=== PATIENT | male | born 1985 | race African-American/Black ===

== ENCOUNTER 2017-02-06 21:36 | Emergency (ER) | payer MEDICARE, OTHER ==
[2017-02-06 21:47] VITALS: BP 130/93; PULSE 83; RESP 18; TEMP 97.9
--- NOTE | 2017-02-06 21:58 | ED ---
General Adult HPI - General Chief complaint: Recheck/Abnormal Lab/Rx Stated complaint: insommnia Time Seen by Provider: 02/06/17 21:50 Source: patient Mode of arrival: ambulatory Limitations: no limitations - History of Present Illness Initial comments: 31-year-old male patient presents to emergency department today with complaints of insomnia and requesting a prescription. Patient states that he has had issues sleeping for years. States that he recently moved to the area and does have an appointment to establish with a primary care physician. Patient states that he has taken melatonin, Benadryl, and use marijuana to help him sleep however none of these really help him. Patient states that he was previously prescribed Ambien by his primary doctor in [place], [place] however he hasn't had this for about a year. Patient states that this did help him in the past. Patient denies any history of anxiety, depression, suicidal thoughts, or suicidal ideation. He denies any physical symptoms or concerns. Denies any headaches, dizziness, weakness, pain, difficulty with urination or bowel movements. - Related Data Previous Rx's Medication Instructions Recorded Zolpidem [Ambien] 10 mg PO HS PRN #10 tab 02/06/17 Allergies Allergy/AdvReac Type Severity Reaction Status Date / Time No Known Allergies Allergy Verified 02/06/17 21:46 Review of Systems ROS Statement: Those systems with pertinent positive or pertinent negative responses have been documented in the HPI. ROS Other: All systems not noted in ROS Statement are negative. Past Medical History Past Medical History: No Reported History History of Any Multi-Drug Resistant Organisms: None Reported Past Surgical History: No Surgical Hx Reported Past Psychological History: Anxiety, Schizophrenia Smoking Status: Current every day smoker Past Alcohol Use History: None Reported Past Drug Use History: Marijuana General Exam Limitations: no limitations General appearance: alert, in no apparent distress Eye exam: Present: normal appearance, PERRL, EOMI. Absent: scleral icterus, conjunctival injection, periorbital swelling ENT exam: Present: normal exam, normal oropharynx, mucous membranes moist Neck exam: Present: normal inspection. Absent: tenderness, meningismus, lymphadenopathy Respiratory exam: Present: normal lung sounds bilaterally. Absent: respiratory distress, wheezes, rales, rhonchi, stridor Cardiovascular Exam: Present: regular rate, normal rhythm, normal heart sounds. Absent: systolic murmur, diastolic murmur, rubs, gallop, clicks Neurological exam: Present: alert, oriented X3, CN II-XII intact Psychiatric exam: Present: normal affect, normal mood Skin exam: Present: warm, dry, intact, normal color. Absent: rash Course Vital Signs 02/06/17 21:43 Temperature 97.9 F Pulse Rate 83 Respiratory 18 Rate Blood Pressure 130/93 O2 Sat by Pulse 97 Oximetry Medical Decision Making - Medical Decision Making 31-year-old male patient presented to emergency department today requesting prescription for medication to help him sleep. Physical exam is unremarkable. Patient denied any suicidal thoughts, anxiety, panic, or other concerns. Patient does have a plan to follow up with and establish with a primary care physician as he is new to the area. Patient will be given a 10 day supply of Ambien as he has taken this with good outcomes in the past. He'll be instructed to return immediately for any new, worsening, or concerning symptoms. Patient verbalizes understanding and agrees with this plan. Disposition Clinical Impression: Insomnia Disposition: HOME SELF-CARE Condition: Good Instructions: Insomnia (ED) Additional Instructions: Follow-up with primary care physician for any prescription refills. Return immediately for any new, worsening, or concerning symptoms. Prescriptions: Zolpidem [Ambien] 10 mg PO HS PRN #10 tab PRN Reason: Insomnia Referrals: None,Stated [Primary Care Provider] - 1-2 days Time of Disposition: 21:58
== END 2017-02-06 22:08 | disposition home or self-care (01) ==
LOC: EC 21:36
DX: G47.00 Insomnia, unspecified (principal); F12.10 Cannabis abuse, uncomplicated; F17.200 Nicotine dependence, unspecified, uncomplicated
CPT/HCPCS: 99283

== ENCOUNTER 2018-04-14 10:31 | Day surgery (SDC) | payer MEDICARE, OTHER ==
[2018-04-11 12:20] VITALS: BMI 30.7
[~2018-04-14 10:31] MED LIST: LACTATED RINGERS 1,000 ML IV SCH
[2018-04-14 10:59] VITALS: TEMP 99.2
[2018-04-14] MEDS ORDERED: LIDOCAINE 1% 20 ML VIAL (10MG/ML) FOR IV START INTRADERMA ONE (11:12)
[2018-04-14] MEDS ORDERED: MIDAZOLAM 2 MG/2 ML VIAL ONE (11:31)
[2018-04-14] MEDS ORDERED: LIDOCAINE 1% INJ 10MG/ML (20 ML MDV) ONE (11:31)
[2018-04-14] MEDS ORDERED: fentaNYL (PF) 50 MCG/ML 2 ML AMP ONE (11:31)
[2018-04-14] MEDS ORDERED: PROPOFOL 10 MG/ML 20 ML VIAL IV ONE (11:31)
[2018-04-14 11:50] VITALS: RESP 18
--- NOTE | 2018-04-14 11:54 | P.PCN ---
Date of Procedure: 04/14/18 Procedure(s) Performed: Procedure: Esophagogastroduodenoscopy and biopsy. Preoperative diagnosis: Chronic gastroesophageal reflux. Postoperative diagnosis: 1. Small sliding hiatal hernia with no definite esophagitis or complicated reflux disease. 2. Mild gastritis and duodenitis. 3. Multiple biopsies obtained from the duodenum, antrum and esophagus. Preparation and sedation: Was provided by anesthesia. Brief clinical history: The patient is a 32-year-old male who is scheduled for this evaluation because of chronic reflux symptoms requiring therapy. This evaluation is to assess for complicated reflux disease peptic ulcer disease or other pathology. Procedure: With the patient on his left lateral decubitus position and after informed consent and adequate sedation, the Olympus-GIF 160 video upper endoscope was used and was advanced under direct vision through the cricopharyngeus down the esophagus. GE junction was around 41 cm from the incisors and there was a small sliding hiatal hernia. There was no definite evidence of esophagitis or complicated reflux disease endoscopically. I then advanced the endoscope into the stomach which was insufflated with air and inspected in detail including the retroflex view in the cardia. There was mottling and erythema in various areas and submucosal hemorrhages in the antrum but no ulcers or erosions. Pyloric channel, duodenal bulb, post bulbar area and descending duodenum were examined and there was some erythema in the duodenal bulb but no ulcers, erosions or bleeding. I obtained biopsies from the duodenum, antrum and esophagus then the endoscope was withdrawn. The patient tolerated the procedure well. Plan: The patient was reassured. Will await biopsy results. He will follow up with you as planned and we would make further recommendations based on his course and biopsy results.
[2018-04-14 12:04] VITALS: BP 100/63; PULSE 76
== END 2018-04-14 12:45 | disposition home or self-care (01) ==
LOC: ORWHC2ENDO 10:31
DX: K29.80 Duodenitis without bleeding (principal); K29.50 Unspecified chronic gastritis without bleeding; K21.0 Gastro-esophageal reflux disease with esophagitis; K31.9 Disease of stomach and duodenum, unspecified; K44.9 Diaphragmatic hernia without obstruction or gangrene; I10 Essential (primary) hypertension; F17.210 Nicotine dependence, cigarettes, uncomplicated; F31.9 Bipolar disorder, unspecified; Z79.899 Other long term (current) drug therapy
CPT/HCPCS: 88305; 43239; J2250; J2001; J3010; J2704

== ENCOUNTER 2019-01-02 08:20 | Emergency (ER) | payer MEDICARE, OTHER ==
[2019-01-02 08:25] VITALS: TEMP 98.7
--- NOTE | 2019-01-02 08:40 | ED ---
General Adult HPI - General Chief complaint: Psychiatric Symptoms Stated complaint: Racing thoughts Time Seen by Provider: 01/02/19 08:26 Source: patient, RN notes reviewed Mode of arrival: ambulatory Limitations: no limitations - History of Present Illness Initial comments: Patient is a pleasant 33-year-old male presenting to the emergency department w ith concerns regarding racing thoughts. Patient is difficult to have a conversation with and does not answer questions unless the asked 2-3 times. Patient states he is sleeping okay. Patient states he is on his medication. Patient denies hallucinations. Patient denies suicidal or homicidal thoughts. Patient states he has had similar symptoms previously and was diagnosed with schizophrenia. - Related Data Home Medications Medication Instructions Recorded Confirmed Metoprolol Tartrate 25 mg PO BID 04/11/18 01/02/19 Albuterol Inhaler [Ventolin Hfa 2 puff INHALATION RT-Q6H PRN 01/02/19 01/02/19 Inhaler] Ergocalciferol [Vitamin D2] 50,000 unit PO Q7D 01/02/19 01/02/19 Fenofibrate 160 mg PO DAILY 01/02/19 01/02/19 Sucralfate [Carafate] 1 gm PO QID 01/02/19 01/02/19 Triamcinolone 0.5% Cream [Kenalog 1 applic TOPICAL BID 01/02/19 01/02/19 0.5% Cream] Zolpidem [Ambien] 10 mg PO HS PRN 01/02/19 01/02/19 amLODIPine [Norvasc] 10 mg PO DAILY 01/02/19 01/02/19 busPIRone HCl [Buspar] 5 mg PO BID 01/02/19 01/02/19 Previous Rx's Medication Instructions Recorded busPIRone HCl [Buspar] 5 mg PO BID #14 tab 01/02/19 Allergies Allergy/AdvReac Type Severity Reaction Status Date / Time No Known Allergies Allergy Verified 01/02/19 08:47 Review of Systems ROS Statement: Those systems with pertinent positive or pertinent negative responses have been documented in the HPI. ROS Other: All systems not noted in ROS Statement are negative. Constitutional: Denies: fever Eyes: Denies: eye pain ENT: Denies: ear pain Respiratory: Denies: cough Cardiovascular: Denies: chest pain Endocrine: Denies: fatigue Gastrointestinal: Denies: abdominal pain Genitourinary: Denies: dysuria Musculoskeletal: Denies: back pain Skin: Denies: rash Neurological: Denies: headache, weakness Past Medical History Past Medical History: Hypertension History of Any Multi-Drug Resistant Organisms: None Reported Past Surgical History: No Surgical Hx Reported Additional Past Anesthesia/Blood Transfusion Reaction / Comment(s): no anes thesia Past Psychological History: Anxiety, Schizophrenia Smoking Status: Current every day smoker Past Alcohol Use History: Occasional Past Drug Use History: Marijuana - Past Family History Mother Family Medical History: No Reported History General Exam Limitations: no limitations General appearance: alert, in no apparent distress Head exam: Present: atraumatic Eye exam: Present: normal appearance, PERRL Neck exam: Present: normal inspection Respiratory exam: Present: normal lung sounds bilaterally Cardiovascular Exam: Present: regular rate, normal rhythm GI/Abdominal exam: Present: soft. Absent: tenderness Extremities exam: Present: normal inspection Neurological exam: Present: alert Psychiatric exam: Present: normal affect, normal mood Skin exam: Present: normal color Course Vital Signs 01/02/19 01/02/19 08:21 09:53 Temperature 98.7 F Pulse Rate 108 H 104 H Respiratory 18 17 Rate Blood Pressure 155/107 114/76 O2 Sat by Pulse 97 100 Oximetry Medical Decision Making - Medical Decision Making Patient reportedly has been out of his BuSpar and mental health services does recommend prescribing prescription until they can see him on follow-up on Saturday. Patient still denies suicidal ideation. Mental health services does recommend discharge. - Lab Data Lab Results 01/02/19 Range/Units 08:33 Urine Opiates Screen Not Detected (NotDetected) Ur Oxycodone Screen Not Detected (NotDetected) Urine Methadone Screen Not Detected (NotDetected) Ur Propoxyphene Screen Not Detected (NotDetected) Ur Barbiturates Screen Not Detected (NotDetected) U Tricyclic Antidepress Not Detected (NotDetected) Ur Phencyclidine Scrn Not Detected (NotDetected) Ur Amphetamines Screen Not Detected (NotDetected) U Methamphetamines Scrn Not Detected (NotDetected) U Benzodiazepines Scrn Not Detected (NotDetected) Urine Cocaine Screen Not Detected (NotDetected) U Marijuana (THC) Screen Detected H (NotDetected) Disposition Clinical Impression: Acute psychosis Disposition: HOME SELF-CARE Condition: Stable Instructions (If sedation given, give patient instructions): Schizophrenia (ED) Additional Instructions: Please follow-up with mental health services Saturday as planned. Please also follow-up with primary care physician in the next day or 2 for recheck. Return for thoughts of self-harm, worsening symptoms or other concerns. Your prescription has been sent to your pharmacy. Prescriptions: busPIRone HCl [Buspar] 5 mg PO BID #14 tab Is patient prescribed a controlled substance at d/c from ED?: No Referrals: [facility] [Primary Care Provider] - 1-2 days Time of Disposition: 12:32
[2019-01-02 09:54] VITALS: BP 114/76; PULSE 104; RESP 17
[2019-01-02 09:57] LABS: Amphetamine Screen,Urine Not Detected (NotDetected); Barbiturate Screen,Urine Not Detected (NotDetected); Benzodiazepines Screen,Urine Not Detected (NotDetected); Cocaine Screen,Urine Not Detected (NotDetected); Methadone Screen, Urine Not Detected (NotDetected); Opiate Screen,Urine Not Detected (NotDetected); Oxycodone Screen, Urine Not Detected (NotDetected); Phencyclidine Screen,Urine Not Detected (NotDetected); Tricyclic Antidepressant,Urine Not Detected (NotDetected); Urn Cannabinoid Scrn Detected (NotDetected)
[2019-01-02] MEDS ORDERED: busPIRone HCl 5 MG TAB PO STA (12:30)
== END 2019-01-02 13:27 | disposition home or self-care (01) ==
LOC: EC 08:20
DX: F23 Brief psychotic disorder (principal); I10 Essential (primary) hypertension; F41.9 Anxiety disorder, unspecified; F17.200 Nicotine dependence, unspecified, uncomplicated; Z79.899 Other long term (current) drug therapy
CPT/HCPCS: 80306; 82075; 99284

== ENCOUNTER 2019-01-17 01:06 | Inpatient (IN) | payer MEDICARE, MEDICAID ==
--- NOTE | 2019-01-17 02:02 | ED ---
Psych HPI - General Source: patient, family, EMS Mode of arrival: EMS <Natividad Escalante - Last Filed: 01/17/19 01:59> <Flaco Cortez - Last Filed: 01/17/19 05:08> - General Chief Complaint: Psychiatric Symptoms Stated Complaint: EPS Eval Time Seen by Provider: 01/17/19 01:08 - History of Present Illness Initial Comments: 33-year-old male patient is brought in for psychiatric evaluation. Patient came home this evening and was acting his or early. Him and his mother got into an argument and she called the police. She did fill out a petition stating that his behavior has been very bizarre. He did threaten to harm her. Patient reports that he was walking home from a friend's house when he noticed there were multiple police officers parked at various intervals stating to his home. Patient states this made him very anxious and upset. Patient states that by the time he got home he was feeling "crazy". States that he wanted to relax however his mother started arguing with him which made him more upset. Police were called to the home, he was restrained. He was brought in by EMS. They did administer 10 mg of Versed. Patient does have history of schizophrenia. Has not been taking any psychiatric medications. Does take medication for blood pressure and sleeping. Does use marijuana. Denies any alcohol use today. Denies any current physical symptoms or concerns. (Natividad Escalante) - Related Data Home Medications Medication Instructions Recorded Confirmed Metoprolol Tartrate 25 mg PO BID 04/11/18 01/02/19 Albuterol Inhaler [Ventolin Hfa 2 puff INHALATION RT-Q6H PRN 01/02/19 01/02/19 Inhaler] Ergocalciferol [Vitamin D2] 50,000 unit PO Q7D 01/02/19 01/02/19 Fenofibrate 160 mg PO DAILY 01/02/19 01/02/19 Sucralfate [Carafate] 1 gm PO QID 01/02/19 01/02/19 Triamcinolone 0.5% Cream [Kenalog 1 applic TOPICAL BID 01/02/19 01/02/19 0.5% Cream] Zolpidem [Ambien] 10 mg PO HS PRN 01/02/19 01/02/19 amLODIPine [Norvasc] 10 mg PO DAILY 01/02/19 01/02/19 busPIRone HCl [Buspar] 5 mg PO BID 01/02/19 01/02/19 Previous Rx's Medication Instructions Recorded busPIRone HCl [Buspar] 5 mg PO BID #14 tab 01/02/19 Allergies Allergy/AdvReac Type Severity Reaction Status Date / Time No Known Allergies Allergy Verified 01/02/19 08:47 Review of Systems ROS Other: All systems not noted in ROS Statement are negative. <Natividad Escalante - Last Filed: 01/17/19 01:59> ROS Other: All systems not noted in ROS Statement are negative. <Flaco Cortez - Last Filed: 01/17/19 05:08> ROS Statement: Those systems with pertinent positive or pertinent negative responses have been documented in the HPI. Past Medical History Past Medical History: Hypertension History of Any Multi-Drug Resistant Organisms: None Reported Past Surgical History: No Surgical Hx Reported Additional Past Anesthesia/Blood Transfusion Reaction / Comment(s): no anesthesia Past Psychological History: Anxiety, Schizophrenia Smoking Status: Current every day smoker Past Alcohol Use History: Occasional Past Drug Use History: Marijuana - Past Family History Mother Family Medical History: No Reported History <Natividad Escalante - Last Filed: 01/17/19 01:59> General Exam General appearance: alert, in no apparent distress, other (This is a well- developed, well-nourished adult male patient in no acute distress. Vital signs upon presentation are temperature 98.0F, pulse 100, respirations 18, blood pressure 133/94, pulse ox 98% on room air.) Eye exam: Present: normal appearance, PERRL, EOMI. Absent: scleral icterus, conjunctival injection, periorbital swelling ENT exam: Present: normal exam, normal oropharynx, mucous membranes moist Respiratory exam: Present: normal lung sounds bilaterally. Absent: respiratory distress, wheezes, rales, rhonchi, stridor Cardiovascular Exam: Present: regular rate, normal rhythm, normal heart sounds. Absent: systolic murmur, diastolic murmur, rubs, gallop, clicks GI/Abdominal exam: Present: soft, normal bowel sounds. Absent: distended, tenderness, guarding, rebound, rigid Neurological exam: Present: alert, oriented X3, CN II-XII intact Psychiatric exam: Present: normal affect, normal mood, other (Paranoid ideation) . Absent: homicidal ideation, suicidal ideation Skin exam: Present: warm, dry, intact, normal color. Absent: rash <Natividad Escalante - Last Filed: 01/17/19 01:59> Course Vital Signs 01/17/19 01:12 Temperature 98 F Pulse Rate 100 Respiratory 18 Rate Blood Pressure 133/94 O2 Sat by Pulse 98 Oximetry Medical Decision Making <Flaco Cortez - Last Filed: 01/17/19 05:08> - Medical Decision Making I saw this patient in conjunction with the physician pediatric medical assistant. I performed independent history and physical exam. Agree with case management. I did see the patient and completed the clinical certificate. (Flaco Cortez) - Lab Data Lab Results 01/17/19 Range/Units 02:35 Urine Opiates Screen Not Detected (NotDetected) Ur Oxycodone Screen Not Detected (NotDetected) Urine Methadone Screen Not Detected (NotDetected) Ur Propoxyphene Screen Not Detected (NotDetected) Ur Barbiturates Screen Not Detected (NotDetected) U Tricyclic Antidepress Not Detected (NotDetected) Ur Phencyclidine Scrn Not Detected (NotDetected) Ur Amphetamines Screen Not Detected (NotDetected) U Methamphetamines Scrn Not Detected (NotDetected) U Benzodiazepines Scrn Not Detected (NotDetected) Urine Cocaine Screen Not Detected (NotDetected) U Marijuana (THC) Screen Detected H (NotDetected) Disposition <Natividad Escalante - Last Filed: 01/17/19 01:59> <Flaco Cortez - Last Filed: 01/17/19 05:08> Clinical Impression: Acute psychosis Disposition: ADMITTED IP TO THIS [facility] Condition: Fair Referrals: None,Stated [Primary Care Provider] - 1-2 days
[2019-01-17 03:07] LABS: Amphetamine Screen,Urine Not Detected (NotDetected); Barbiturate Screen,Urine Not Detected (NotDetected); Benzodiazepines Screen,Urine Not Detected (NotDetected); Cocaine Screen,Urine Not Detected (NotDetected); Methadone Screen, Urine Not Detected (NotDetected); Opiate Screen,Urine Not Detected (NotDetected); Oxycodone Screen, Urine Not Detected (NotDetected); Phencyclidine Screen,Urine Not Detected (NotDetected); Tricyclic Antidepressant,Urine Not Detected (NotDetected); Urn Cannabinoid Scrn Detected (NotDetected)
[2019-01-17] MEDS ORDERED: OLANZapine ODT 10 MG TAB PO STA (04:09)
[2019-01-17] MEDS ORDERED: MAGNESIUM HYDROXIDE 2,400 MG/10 ML CUP PO PRN (05:34)
[2019-01-17] MEDS ORDERED: MAG HYDROX/AL HYDROX/SIMETH 30 ML CUP PO PRN (05:34)
[2019-01-17 07:31] LABS: Basophils % (A) 0 %; Eosinophils # (A) 0.2 k/uL (0-0.7); Eosinophils % (A) 2 %; HCT 41.1 % (39.0-53.0); Lymphocytes # (A) 1.5 k/uL (1.0-4.8); Lymphocytes % (A) 15 %; MCH 30.9 pg (25.0-35.0); MCV 91.1 fL (80.0-100.0); Mean Platelet Volume 7.7; Monocytes # (A) 0.6 k/uL (0-1.0); Monocytes % (A) 7 %; Neutrophils # (A) 7.2 k/uL (1.3-7.7); Neutrophils % (A) 74 %; Platelet Count 268 k/uL (150-450); RBC 4.51 m/uL (4.30-5.90); WBC 9.7 k/uL (3.8-10.6)
[2019-01-17 07:49] LABS: ALT 17 U/L (21-72); AST 24 U/L (17-59); African American GFR (CKD) >90 (>60 ml/min/1.73 sqM); Albumin 4.2 g/dL (3.5-5.0); Alkaline Phosphatase 54 U/L (38-126); Anion Gap 10 mmol/L; Blood Urea Nitrogen 13 mg/dL (9-20); Carbon Dioxide 24 mmol/L (22-30); Chloride 108 mmol/L (98-107); Glucose 126 mg/dL (74-99); Non-African American GFR(CKD) 86 (>60 ml/min/1.73 sqM); Sodium 142 mmol/L (137-145); Total Bilirubin 0.2 mg/dL (0.2-1.3); Total Protein 6.8 g/dL (6.3-8.2)
[2019-01-17] MEDS: METOPROLOL TARTRATE 25 MG TAB PO SCH ×2 (08:58→20:11)
[2019-01-17] MEDS: TRIAMCINOLONE ACET 0.5% CREAM 15 GM TUBE TOPICAL SCH ×2 (08:58→20:12)
[2019-01-17] MEDS: SUCRALFATE 1 GM TAB PO SCH ×4 (08:58→20:11)
[2019-01-17] MEDS: FENOFIBRATE 160 MG TAB PO SCH (08:58)
[2019-01-17] MEDS: NYSTATIN 100,000UNIT/GM CREAM 30 GM TUBE TOPICAL SCH ×2 (08:58→20:12)
[2019-01-17] MEDS: amLODIPine 10 MG TAB PO SCH (08:58)
[2019-01-17] MEDS ORDERED: busPIRone HCl 5 MG TAB PO SCH (09:00)
[2019-01-17] MEDS: NICOTINE 14MG/24HR PATCH TRANSDERM SCH (12:41)
--- NOTE | 2019-01-17 13:52 | P.HP ---
Psychiatric H&P - . History & Physical: Allergies Allergy/AdvReac Type Severity Reaction Status Date / Time No Known Allergies Allergy Verified 01/17/19 08:15 Vital Signs Temp 97.9 F 01/17/19 06:00 Pulse 108 H 01/17/19 06:00 Resp 16 01/17/19 06:00 BP 132/85 01/17/19 06:29 Pulse Ox 98 01/17/19 01:12 Intake & Output 01/16/19 01/17/19 01/17/19 18:59 06:59 18:59 Weight 81.647 kg Laboratory Last Values WBC 9.7 k/uL (3.8-10.6) 01/17/19 07:06 RBC 4.51 m/uL (4.30-5.90) 01/17/19 07:06 Hgb 14.0 gm/dL (13.0-17.5) 01/17/19 07:06 Hct 41.1 % (39.0-53.0) 01/17/19 07:06 MCV 91.1 fL (80.0-100.0) 01/17/19 07:06 MCH 30.9 pg (25.0-35.0) 01/17/19 07:06 MCHC 34.0 g/dL (31.0-37.0) 01/17/19 07:06 RDW 13.0 % (11.5-15.5) 01/17/19 07:06 Plt Count 268 k/uL (150-450) 01/17/19 07:06 Neutrophils % 74 % 01/17/19 07:06 Lymphocytes % 15 % 01/17/19 07:06 Monocytes % 7 % 01/17/19 07:06 Eosinophils % 2 % 01/17/19 07:06 Basophils % 0 % 01/17/19 07:06 Neutrophils # 7.2 k/uL (1.3-7.7) 01/17/19 07:06 Lymphocytes # 1.5 k/uL (1.0-4.8) 01/17/19 07:06 Monocytes # 0.6 k/uL (0-1.0) 01/17/19 07:06 Eosinophils # 0.2 k/uL (0-0.7) 01/17/19 07:06 Basophils # 0.0 k/uL (0-0.2) 01/17/19 07:06 Sodium 142 mmol/L (137-145) 01/17/19 07:06 Potassium 4.0 mmol/L (3.5-5.1) 01/17/19 07:06 Chloride 108 mmol/L (98-107) H 01/17/19 07:06 Carbon Dioxide 24 mmol/L (22-30) 01/17/19 07:06 Anion Gap 10 mmol/L 01/17/19 07:06 BUN 13 mg/dL (9-20) 01/17/19 07:06 Creatinine 1.14 mg/dL (0.66-1.25) 01/17/19 07:06 Est GFR (CKD-EPI)AfAm >90 (>60 ml/min/1.73 sqM) 01/17/19 07:06 Est GFR (CKD-EPI)NonAf 86 (>60 ml/min/1.73 sqM) 01/17/19 07:06 Glucose 126 mg/dL (74-99) H 01/17/19 07:06 Calcium 10.0 mg/dL (8.4-10.2) 01/17/19 07:06 Total Bilirubin 0.2 mg/dL (0.2-1.3) 01/17/19 07:06 AST 24 U/L (17-59) 01/17/19 07:06 ALT 17 U/L (21-72) L 01/17/19 07:06 Alkaline Phosphatase 54 U/L (38-126) 01/17/19 07:06 Total Protein 6.8 g/dL (6.3-8.2) 01/17/19 07:06 Albumin 4.2 g/dL (3.5-5.0) 01/17/19 07:06 TSH 1.370 mIU/L (0.465-4.680) 01/17/19 07:06 Urine Opiates Screen Not Detected (NotDetected) 01/17/19 02:35 Ur Oxycodone Screen Not Detected (NotDetected) 01/17/19 02:35 Urine Methadone Screen Not Detected (NotDetected) 01/17/19 02:35 Ur Propoxyphene Screen Not Detected (NotDetected) 01/17/19 02:35 Ur Barbiturates Screen Not Detected (NotDetected) 01/17/19 02:35 U Tricyclic Antidepress Not Detected (NotDetected) 01/17/19 02:35 Ur Phencyclidine Scrn Not Detected (NotDetected) 01/17/19 02:35 Ur Amphetamines Screen Not Detected (NotDetected) 01/17/19 02:35 U Methamphetamines Scrn Not Detected (NotDetected) 01/17/19 02:35 U Benzodiazepines Scrn Not Detected (NotDetected) 01/17/19 02:35 Urine Cocaine Screen Not Detected (NotDetected) 01/17/19 02:35 U Marijuana (THC) Screen Detected (NotDetected) H 01/17/19 02:35 01/17/19 13:45 IDENTIFYING DATA: This patient is a 33-year-old -[place] male who was admitted to the mental health unit involuntarily for acute symptoms of psychosis. HPI: The patient presents with a petition completed by a relative stating "he has threatened to hit me took my cell phone did want to return it, he has been hallucination and been diagnosed schizophrenia". The patient was resting in his room he was verbally arousable but had a dramatic startle reaction. He followed me to the self lounge to speak. He states he needs to get out of here he doesn't want any medication. He asked me if I'm here to help him. He states that he sees numbers but does not describe anything specific. He reports that he talks to himself on a regular basis and if I don't like it don't listen. He denies making statements threatening harm to his mother. When I ask if he has any suicidal ideation he states "it's a relevant". The patient tolerated the session for only a few minutes and then got up and left the lounge. As he walked down the hallway towards his room he punched the wall. PAST PSYCHIATRIC HISTORY: Unknown PMH: Unknown ALLERGIES: NO KNOWN DRUG ALLERGIES MEDICATIONS: Unknown other than he has been on BuSpar and possibly Ambien CHEMICAL DEPENDENCY HISTORY: Urine drug screens positive for marijuana FAMILY PSYCHIATRIC HISTORY: Unknown FAMILY CHEMICAL DEPENDENCY HISTORY: unKnown SOCIAL HISTORY: The patient is 33 years old he is single he states he has no children he has 3 brothers. He states that he lives with his mother. He has a 10th grade education no history of service. Legal history and abuse history unknown MENTAL STATUS EXAM: The patient is a tall -[place] male appearing his stated age. He is dressed in hospital gowns. He has long hair that is sticking up. Eye contact is intermittent. He is guarded and suspicious. Initially demonstrate psychomotor slowing and long pauses in answering questions possibly suggestive of thought blocking. He reports seeing numbers. He appears to be psychotic. Thought process is not well organized he has difficulty staying on topic in our brief conversation. He becomes quickly agitated to the point of physical aggressiveness as noted above. He terminated the interview fairly quickly getting up and leaving the room. Insight and judgment are poor. He demonstrates no involuntary repetitive movements. As he left the room he yelled some profanities. STRENGTHS/WEAKNESSES: Strengths: Housing weaknesses: Noncompliance with treatment use of marijuana acute psychotic symptoms INTELLECTUAL FUNCTIONING: Suspect below average IMPRESSIONS: [] 1. Psychosis some specified rule out schizophrenia versus schizoaffective disorder, cannabis use disorder PLAN: The patient has been admitted to the mental health unit on a petition and clinical certificate. He appear psychotic he appears easily agitated and would not cooperate with a full evaluation. I believe he requires further evaluation and treatment. A second clinical certificate will be completed. Although the etiology of his psychosis is not yet clear we will offer invega 6 mg at bedtime to address the symptoms of psychosis. He will be seen by internal medicine for routine history and physical exam. Social work will attempt to meet with him to complete a psychosocial assessment and begin discharge planning. We will monitor him for safety. We will provide reality orientation when possible. Vital signs reviewed.
--- NOTE | 2019-01-17 15:28 | P.CONS ---
History of Present Illness - Reason for Consult Consult date: 01/17/19 - History of Present Illness The patient is a 33 -year-old male with a PMH of hypertension and bipolar disorder presented to the ED for psychiatric evaluation. The patient had an altercation with his mother who subsequently petitioned him as he threatened to harm her. The patient was seen in the mental health unit. He states that he is trying to get his "mind right". The patient states that he was not taking his psychiatric medications. He denied any suicidal or homicidal ideation. He further denied visual complaints including chest pain, shortness of breath, nausea, vomiting, fever, chills, or cough. The patient had an extensive evaluation in the ED with WBC count 9.7, hemoglobin 14, platelets 268, sodium 142, potassium 4.0, BUN 13, and creatinine 1.14. Review of Systems Pertinent positives and negatives as discussed in HPI, a complete review of systems was performed and all other systems are negative. Past Medical History Past Medical History: Hypertension History of Any Multi-Drug Resistant Organisms: None Reported Past Surgical History: No Surgical Hx Reported Additional Past Anesthesia/Blood Transfusion Reaction / Comm: no anesthesia Past Psychological History: Anxiety, Schizophrenia Smoking Status: Current every day smoker Past Alcohol Use History: Occasional Past Drug Use History: Marijuana - Past Family History Mother Family Medical History: No Reported History Medications and Allergies Home Medications Medication Instructions Recorded Confirmed Type Metoprolol Tartrate 25 mg PO BID 04/11/18 01/17/19 History Ergocalciferol [Vitamin D2] 50,000 unit PO Q7D 01/02/19 01/17/19 History Fenofibrate 160 mg PO DAILY 01/02/19 01/17/19 History Sucralfate [Carafate] 1 gm PO QID 01/02/19 01/17/19 History Triamcinolone 0.5% Cream [Kenalog 1 applic TOPICAL BID 01/02/19 01/17/19 History 0.5% Cream] Zolpidem [Ambien] 10 mg PO HS PRN 01/02/19 01/17/19 History amLODIPine [Norvasc] 10 mg PO DAILY 01/02/19 01/17/19 History busPIRone HCl [Buspar] 5 mg PO BID #14 tab 01/02/19 01/17/19 Rx Albuterol Inhaler [Ventolin Hfa 2 puff INHALATION RT-Q4H PRN 01/17/19 01/17/19 History Inhaler] Nystatin 100,000Unit/gm Cream 1 applic TOPICAL BID 01/17/19 01/17/19 History [Mycostatin Cream] fluPHENAZine DECANOATE [Prolixin 25 mg IM [id number] 01/17/19 01/17/19 History Decanoate] Allergies Allergy/AdvReac Type Severity Reaction Status Date / Time No Known Allergies Allergy Verified 01/17/19 08:15 Physical Exam Vitals: Vital Signs Temp Pulse Pulse Resp BP BP Pulse Ox 01/17/19 06:29 132/85 01/17/19 06:00 97.9 F 108 H 16 166/106 01/17/19 01:12 98 F 100 18 133/94 98 Intake and Output 01/17/19 01/17/19 01/17/19 06:59 14:59 22:59 Other: Weight 81.647 kg General: non toxic, no distress, appears at stated age, normal weight Derm: no unusual rashes/lesions no unusual ecchymoses, warm, dry Head: atraumatic, normocephalic, symmetric Eyes: EOMI, no lid lag, anicteric sclera, pupils equal round reactive to light ENT: Nose and ears atraumatic, no thrush, no pharyngeal erythema Neck: No thyromegaly, no cervical lymphadenopathy, trachea midline, supple Mouth: no lip lesion, mucus membranes moist Cardiovascular: S1S2 reg, no murmur, positive posterior tibial pulse bilateral, no edema, capillary refill less than 2 seconds Lungs: CTA bilateral, no rhonchi, no rales , no accessory muscle use Abdominal: soft, nontender to palpation, no guarding, no appreciable organomegaly, normal bowel sounds Ext: no gross muscle atrophy, muscle strength 5 out of 5 in all 4 extremities grossly, no contractures, Neuro: CN II-XI grossly intact, light touch intact all 4 extremities, finger to nose within normal limits, Psych: Alert, oriented, pressured speech, tangentiality, paranoid Results CBC & Chem 7: 01/17/19 07:06 01/17/19 07:06 Labs: Abnormal Lab Results - Last 24 Hours (Table) 01/17/19 01/17/19 Range/Units 02:35 07:06 Chloride 108 H (98-107) mmol/L Glucose 126 H (74-99) mg/dL ALT 17 L (21-72) U/L U Marijuana (THC) Screen Detected H (NotDetected) Assessment and Plan Plan: Hypertension -Continue with home meds Schizophrenia, active psychosis -As per psychiatry Marijuana abuse -Advised patient on importance of cessation Hyperglycemia -Check A1c
[2019-01-17 19:30] LABS: Hemoglobin A1C 5.5 % (4.0-6.0)
[2019-01-17] MEDS: PALIPERIDONE 6 MG TAB.ER.24 PO SCH (20:11)
[2019-01-18 05:25] LABS: Cholesterol 165 mg/dL (<200); HDL Cholesterol 44 mg/dL (40-60); LDL Cholesterol,Calculated 98 mg/dL (0-99); Triglycerides 116 mg/dL (<150)
[2019-01-18] MEDS: amLODIPine 10 MG TAB PO SCH (08:05)
[2019-01-18] MEDS: METOPROLOL TARTRATE 25 MG TAB PO SCH ×2 (08:05→20:19)
[2019-01-18] MEDS: SUCRALFATE 1 GM TAB PO SCH ×4 (08:05→20:19)
[2019-01-18] MEDS: NICOTINE 14MG/24HR PATCH TRANSDERM SCH ×2 (08:07→11:01)
[2019-01-18] MEDS: TRIAMCINOLONE ACET 0.5% CREAM 15 GM TUBE TOPICAL SCH ×2 (08:07→20:23)
[2019-01-18] MEDS: FENOFIBRATE 160 MG TAB PO SCH (08:08)
--- NOTE | 2019-01-18 09:22 | P.PN ---
Progress Note - Text Interval history: The patient's is found in the hallway he approached me to speak. He was interviewed in a conference room. He indicates his mood is better. He indicates that he did take the Invega last evening he states it was a medicine that he has been on before and is comfortable continuing it. He states he was angry yesterday after our discussion and he was apologetic. He continues to feel unsafe here in the hospital and he feels unsafe outside of the hospital as well. He states he has a name that everybody knows and he thinks if somebody knows him something bad will happen. 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 Mental status exam: The patient is an -Martiniquais male appearing his stated age. He has a disheveled appearance. He is dressed in hospital gowns. He was more cooperative today. He continues to demonstrate a disorganized thought process as well as paranoid thoughts. He demonstrated no verbal or physical aggressiveness today. Eye contact was intermittent. He frequently changes position while seated in the chair and often runs his hands through his hair. He demonstrates no involuntary repetitive movements. Insight and judgment are impaired. He reports no thoughts of wanting to harm himself or others. He denies experiencing any auditory or visual hallucinations although he may be underreporting. Plan: We will continue the invega at its current dose for his acute symptoms of psychosis. We will monitor him for safety and encourage participation in the milieu. Provide reality orientation when possible. Vital signs reviewed.
[2019-01-18] MEDS: NYSTATIN 100,000UNIT/GM CREAM 30 GM TUBE TOPICAL SCH ×2 (09:39→20:23)
[2019-01-18] MEDS: LORazepam 1 MG TAB PO PRN ×2 (11:03→20:21)
[2019-01-18] MEDS: ACETAMINOPHEN TAB 325 MG TAB PO PRN (11:03)
[2019-01-18 18:35] LABS: Appearance,Urine Clear (Clear); Bilirubin,Urine Negative (Negative); Blood,Urine Negative (Negative); Color,Urine Light Yellow; Glucose,Urine (UA) Negative (Negative); Ketones,Urine Negative (Negative); Leukocyte Esterase,Urine Negative (Negative); Nitrite,Urine Negative (Negative); Protein,Urine Negative (Negative); Specific Gravity,Urine 1.007 (1.001-1.035); Urobilinogen,Urine <2.0 mg/dL (<2.0)
[2019-01-18] MEDS: PALIPERIDONE 6 MG TAB.ER.24 PO SCH (20:20)
[2019-01-19] MEDS: LORazepam 1 MG TAB PO PRN ×2 (04:57→22:24)
[2019-01-19] MEDS: SUCRALFATE 1 GM TAB PO SCH ×4 (07:50→20:41)
[2019-01-19] MEDS: amLODIPine 10 MG TAB PO SCH (07:51)
[2019-01-19] MEDS: METOPROLOL TARTRATE 25 MG TAB PO SCH ×2 (07:51→20:40)
[2019-01-19] MEDS: NICOTINE 14MG/24HR PATCH TRANSDERM SCH (08:15)
[2019-01-19] MEDS: NYSTATIN 100,000UNIT/GM CREAM 30 GM TUBE TOPICAL SCH ×2 (08:15→20:58)
[2019-01-19] MEDS: TRIAMCINOLONE ACET 0.5% CREAM 15 GM TUBE TOPICAL SCH ×2 (08:25→20:58)
[2019-01-19] MEDS: FENOFIBRATE 160 MG TAB PO SCH (08:43)
--- NOTE | 2019-01-19 11:12 | P.PN ---
Progress Note - Text Interval history: The patient's found in the hallway he follows me to an interview room. He reports his mood is okay but he worked all day and just wants to go home to his car. We reviewed his psychotropic medication. He states he been on invega in the past he has no objections to using it now. In reviewing the last note from [facility] it appears that he was on Prolixin decanoate. We discussed this during treatment team. The [facility] liaison will discuss this with Dr. Green the patient's outpatient psychiatrist to see if she prefers he be on the Prolixin dec or if he did just as well on Invega Sustenna. The patient indicates that he slept last night appetite stable. Mental status exam: The patient is alert he is a disheveled appearance he is pleasant cooperative. He demonstrates a disorganized thought process he demonstrates disorganized delusions. He has trouble tracking the conversation and maintaining the same topic. He demonstrates no verbal or physical aggressiveness he demonstrates no involuntary repetitive movements. Insight and judgment are impaired. He is reporting no suicidal or homicidal thoughts. Plan: The patient will continue on invega for now, I will titrate the dose to 9 mg at bedtime. If we hear from [facility] that they feel strongly that he has done quite well on Prolixin decanoate every 2 weeks we will consider that as an alternative. Vital signs reviewed. We will monitor him for safety. He is encouraged to participate in groups.
[2019-01-19] MEDS: PALIPERIDONE 3 MG TAB.ER.24 PO SCH (20:41)
[2019-01-19] MEDS: ZIPRASIDONE 20 MG VIAL IM PRN (20:42)
[2019-01-19] MEDS: ACETAMINOPHEN TAB 325 MG TAB PO PRN (20:58)
[2019-01-20] MEDS ORDERED: ZIPRASIDONE 20 MG VIAL IM STA (02:10)
[2019-01-20] MEDS: FENOFIBRATE 160 MG TAB PO SCH (08:09)
[2019-01-20] MEDS: SUCRALFATE 1 GM TAB PO SCH ×4 (08:09→21:15)
[2019-01-20] MEDS: TRIAMCINOLONE ACET 0.5% CREAM 15 GM TUBE TOPICAL SCH ×2 (08:10→21:18)
[2019-01-20] MEDS: amLODIPine 10 MG TAB PO SCH (08:10)
[2019-01-20] MEDS: METOPROLOL TARTRATE 25 MG TAB PO SCH ×2 (08:10→21:15)
[2019-01-20] MEDS: NICOTINE 14MG/24HR PATCH TRANSDERM SCH (08:10)
[2019-01-20] MEDS: NYSTATIN 100,000UNIT/GM CREAM 30 GM TUBE TOPICAL SCH ×2 (08:10→21:17)
--- NOTE | 2019-01-20 10:57 | P.PN ---
Progress Note - Text Interval history: The patient is found in his room he follows me to an interview room. He indicates he wants to go home. He reports he slept well throughout the night. Staff recorded he slept 4 hours. Appetite stable. Staff reported the patient's been attending some groups he has described to them that his thought process was cluttered. Mental status exam: The patient is alert he is dressed in hospital gowns. He has a disheveled appearance. He reports his mood is upset. He demonstrates a labile affect today he becomes tearful twice during the session but reconstitutes. Out of frustration he leaves the interview room. He reports no suicidal or homicidal thoughts. He does appear to be preoccupied. The question will be asked and he will stare back for several seconds before answering. It's likely that he is experiencing auditory hallucinations. Insight and judgment are impaired. He demonstrates no verbal or physical aggressiveness he demonstrates no involuntary repetitive movements. Plan: Continue symptoms of psychosis, continue invega as written. I was informed that the patient's outpatient psychiatrist is agreeable to us using invega. Vital signs reviewed. He is encouraged to fully participate in the milieu and to attend to his ADLs. He requires continued psychiatric hospitalization.
[2019-01-20] MEDS: LORazepam 1 MG TAB PO PRN ×2 (17:35→23:29)
[2019-01-20] MEDS: PALIPERIDONE 3 MG TAB.ER.24 PO SCH (21:15)
[2019-01-21] MEDS: SUCRALFATE 1 GM TAB PO SCH ×4 (08:49→20:56)
[2019-01-21] MEDS: amLODIPine 10 MG TAB PO SCH (08:49)
[2019-01-21] MEDS: NICOTINE 14MG/24HR PATCH TRANSDERM SCH (08:49)
[2019-01-21] MEDS: METOPROLOL TARTRATE 25 MG TAB PO SCH ×3 (08:49→22:00)
[2019-01-21] MEDS: FENOFIBRATE 160 MG TAB PO SCH (08:49)
[2019-01-21] MEDS: TRIAMCINOLONE ACET 0.5% CREAM 15 GM TUBE TOPICAL SCH ×2 (08:50→20:57)
[2019-01-21] MEDS: NYSTATIN 100,000UNIT/GM CREAM 30 GM TUBE TOPICAL SCH ×2 (08:50→20:57)
--- NOTE | 2019-01-21 11:18 | P.PN ---
Progress Note - Text Interval history: The patient is found in the [facility] we conducted our interview this morning in that room. He states that his mood is "alright". He states that he enjoyed group therapy because he was told he can ask questions. He states he's comforted that he can call the crisis line when he leaves when he needs help. He reports he slept 6 hours last night staff recorded he slept 5. Acute appetite stable. He has no questions or concerns regarding his medication. He consistently asked when he can be discharged lacking insight into his need for hospitalization. Staff report he has been demonstrated no aggressive behavior but thoughts appear disorganized. Mental status exam: The patient is alert he is dressed in hospital gowns. Eye contact is appropriate. He stood for much of the session and then later sat and frequently shifted position while seated. He continues to appear distractible. At times will be long pauses after I ask a question before he answers he may be internally preoccupied. He demonstrates some disorganization of thought. Answers are often vague sometimes to the point of not answering the question asked. He reports no suicidal or homicidal thoughts. He demonstrates no verbal or physical aggressiveness during our session. He has an emotional reaction once he is told he will be discharged today but he quickly reconstitutes. Plan: The patient will continue on the invega at its current dose. We are allowing the medication time to demonstrate efficacy. Vital signs reviewed. He is encouraged to fully participate in the milieu. Reality orientation is provided when possible. He requires continued psychiatric hospitalization.
[2019-01-21] MEDS: PALIPERIDONE 3 MG TAB.ER.24 PO SCH (20:55)
[2019-01-21] MEDS: LORazepam 1 MG TAB PO PRN (20:57)
[2019-01-22] MEDS: METOPROLOL TARTRATE 25 MG TAB PO SCH ×3 (01:25→21:15)
[2019-01-22] MEDS: ZIPRASIDONE 20 MG VIAL IM PRN ×2 (01:25→22:03)
[2019-01-22] MEDS: SUCRALFATE 1 GM TAB PO SCH ×4 (08:22→21:16)
[2019-01-22] MEDS: FENOFIBRATE 160 MG TAB PO SCH (08:22)
[2019-01-22] MEDS: NICOTINE 14MG/24HR PATCH TRANSDERM SCH (08:22)
[2019-01-22] MEDS: amLODIPine 10 MG TAB PO SCH (08:23)
[2019-01-22] MEDS: NYSTATIN 100,000UNIT/GM CREAM 30 GM TUBE TOPICAL SCH ×2 (08:26→23:59)
[2019-01-22] MEDS: TRIAMCINOLONE ACET 0.5% CREAM 15 GM TUBE TOPICAL SCH ×2 (08:26→23:59)
--- NOTE | 2019-01-22 10:08 | P.PN ---
Progress Note - Text Interval history: The patient is found in the hallway he follows me to an interview room. He indicates his mood is okay. Staff report that he voluntarily accepted a Geodon injection last evening. He was found laying on the hallway floor he described having difficulty with sleep and he appeared acutely psychotic to staff at the time. He states he had a visit from his mother that went well. Appetite stable. Staff reported he slept 6 hours. He continues to inquire as to when his discharge date will be. We reviewed his psychotropic medication. Mental status exam: The patient is an -Bahamian male appearing his stated age. He states that his mood is okay. Affect is labile. He constantly changes position while seated in the chair. He looks down he puts his hands on his head. He expresses feelings of frustration but not aggressively. He continues to struggle with focus and concentration in the conversation. He begins to ask me a question and then forgets the question as he is verbalizing it. He reports no auditory or visual hallucinations but I suspect that they are present as he does seem preoccupied at times during our interaction. He is reporting no suicidal or homicidal thoughts. Insight and judgment are impaired. Thought process demonstrates disorganization. He demonstrates no involuntary repetitive movements. He demonstrates no verbal or physical aggressiveness. Plan: Ongoing symptoms of psychosis, continuing day at which was just titrated. We will consider titrating further. We will look for input from his mother who visited last evening. We will monitor him for safety and encourage participation in the milieu. He requires continued psychiatric hospitalization for acute symptoms of psychosis that continue to be an acute safety risk.
[2019-01-22] MEDS: PALIPERIDONE 3 MG TAB.ER.24 PO SCH (21:15)
[2019-01-23] MEDS: SUCRALFATE 1 GM TAB PO SCH ×4 (07:50→21:12)
[2019-01-23] MEDS: METOPROLOL TARTRATE 25 MG TAB PO SCH ×2 (08:26→21:11)
[2019-01-23] MEDS: NYSTATIN 100,000UNIT/GM CREAM 30 GM TUBE TOPICAL SCH ×2 (08:26→21:16)
[2019-01-23] MEDS: amLODIPine 10 MG TAB PO SCH (08:26)
[2019-01-23] MEDS: FENOFIBRATE 160 MG TAB PO SCH (08:26)
[2019-01-23] MEDS: NICOTINE 14MG/24HR PATCH TRANSDERM SCH (08:26)
[2019-01-23] MEDS: TRIAMCINOLONE ACET 0.5% CREAM 15 GM TUBE TOPICAL SCH ×2 (08:27→21:12)
--- NOTE | 2019-01-23 11:41 | P.PN ---
Progress Note - Text Interval history: The patient is found in his room lying in bed awake he prefers not to speak in an interview room today. He states his mood is okay. He inquires as to when he can be discharged. Staff report that the patient seems to demonstrate some mild agitation around dinnertime. We discussed dosing invega earlier than bedtime. He continues to demonstrate to staff some disorganization of thought. He describes some difficulty sleeping at night he is found in bed resting late into the morning. Appetite stable. He indicates he is showering. Mental status exam: The patient is alert he is lying in bed he is covered up to his neck with a blanket. He makes eye contact he engages in conversation. He's pleasant cooperative and easily directed. He does continue demonstrate some disorganization of thought. During this interaction this morning however he did seem to be better than previous days. He reports no suicidal or homicidal ideation. He is endorsing no symptoms of psychosis however it's likely they still persist. Insight and judgment limited. He demonstrates no verbal or physical aggressiveness no involuntary repetitive movements. Affect is constricted. Plan: We will continue the invega at 9 mg and moved the dosing to approximate 5 PM. We will monitor him for safety. We are allowing the medicine time to demonstrate efficacy. Vital signs reviewed. Efforts are made to provide reality orientation when possible.
[2019-01-23] MEDS: PALIPERIDONE 3 MG TAB.ER.24 PO SCH (16:48)
[2019-01-23] MEDS: ZIPRASIDONE 20 MG VIAL IM PRN (20:16)
[2019-01-24] MEDS: LORazepam 1 MG TAB PO PRN (01:00)
[2019-01-24] MEDS: ACETAMINOPHEN TAB 325 MG TAB PO PRN (02:18)
[2019-01-24] MEDS: SUCRALFATE 1 GM TAB PO SCH ×4 (08:19→21:21)
[2019-01-24] MEDS: FENOFIBRATE 160 MG TAB PO SCH (08:21)
[2019-01-24] MEDS: NICOTINE 14MG/24HR PATCH TRANSDERM SCH (08:21)
[2019-01-24] MEDS: amLODIPine 10 MG TAB PO SCH (08:21)
[2019-01-24] MEDS: METOPROLOL TARTRATE 25 MG TAB PO SCH ×2 (08:21→21:21)
[2019-01-24] MEDS: NYSTATIN 100,000UNIT/GM CREAM 30 GM TUBE TOPICAL SCH ×2 (08:22→21:21)
[2019-01-24] MEDS: TRIAMCINOLONE ACET 0.5% CREAM 15 GM TUBE TOPICAL SCH ×2 (08:22→21:22)
--- NOTE | 2019-01-24 16:04 | P.PN ---
Progress Note - Text Progress Note Date: 01/24/19 Interval history: Patient is seen in cross coverage today. He initially seen in his room and then is agreeable to come to the interview room. Seems to relay that he didn't sleep last night but then slept earlier today. He does not seem to voice any adverse psychotropic medication side effects. He seems to relay that when he gets an injection it causes some pain. Mental status exam: He is alert and cooperative with the interview. His speech is fluent, not rapid or pressured. He does not seem to relay any auditory or visual hallucinations but states his main issue is racing thoughts. He does not verbalize any thoughts of harm to self or others. He does not show any agitation. Plan: Patient be maintained on current psychotropic medication regimen. Continue to monitor for any medication side effects and monitor his ongoing response to treatment.
[2019-01-24] MEDS: PALIPERIDONE 3 MG TAB.ER.24 PO SCH (17:10)
[2019-01-25] MEDS: ZIPRASIDONE 20 MG VIAL IM PRN (00:03)
[2019-01-25] MEDS: METOPROLOL TARTRATE 25 MG TAB PO SCH ×2 (08:13→20:57)
[2019-01-25] MEDS: NICOTINE 14MG/24HR PATCH TRANSDERM SCH (08:13)
[2019-01-25] MEDS: FENOFIBRATE 160 MG TAB PO SCH (08:13)
[2019-01-25] MEDS: SUCRALFATE 1 GM TAB PO SCH ×4 (08:13→20:57)
[2019-01-25] MEDS: amLODIPine 10 MG TAB PO SCH (08:13)
[2019-01-25] MEDS: TRIAMCINOLONE ACET 0.5% CREAM 15 GM TUBE TOPICAL SCH ×2 (08:15→20:57)
[2019-01-25] MEDS: NYSTATIN 100,000UNIT/GM CREAM 30 GM TUBE TOPICAL SCH ×2 (08:15→20:57)
--- NOTE | 2019-01-25 10:49 | P.PN ---
Progress Note - Text Progress Note Date: 01/25/19 Interval history: Patient is seen again in cross coverage today. He is agreeable to come to the interview room. He does not verbalize any psychotropic medication side effects. He states his appetite is not doing good. Mental status exam: He is alert and cooperative with the interview. His thought processes are disorganized. When asked regarding on hallucinations he shakes his head no. When asked about thoughts of harm to self or others he also shakes his head no. He inquires regarding issues of responsibility if he were in a physical altercation. He does not show any agitation. He appears as though he may be internally preoccupied at times during the session. Plan: Patient will be maintained on current psychotropic medication regimen. Continue to monitor for medication side effects and monitor his ongoing response to treatment.
[2019-01-25] MEDS: ACETAMINOPHEN TAB 325 MG TAB PO PRN (15:10)
[2019-01-25] MEDS: PALIPERIDONE 3 MG TAB.ER.24 PO SCH (16:46)
[2019-01-26] MEDS: SUCRALFATE 1 GM TAB PO SCH ×4 (08:58→22:05)
[2019-01-26] MEDS: METOPROLOL TARTRATE 25 MG TAB PO SCH ×2 (08:58→22:04)
[2019-01-26] MEDS: FENOFIBRATE 160 MG TAB PO SCH (08:58)
[2019-01-26] MEDS: amLODIPine 10 MG TAB PO SCH (08:58)
[2019-01-26] MEDS: NICOTINE 14MG/24HR PATCH TRANSDERM SCH (08:59)
[2019-01-26] MEDS: NYSTATIN 100,000UNIT/GM CREAM 30 GM TUBE TOPICAL SCH ×2 (09:01→22:05)
[2019-01-26] MEDS: TRIAMCINOLONE ACET 0.5% CREAM 15 GM TUBE TOPICAL SCH ×2 (09:01→22:05)
[2019-01-26 09:33] VITALS: BMI 24.1
--- NOTE | 2019-01-26 16:22 | PN ---
PROGRESS NOTE DATE OF SERVICE: 01/26/2019. CHIEF COMPLAINT: The patient was threatening to hit his mother. He had hallucinations and disorganized behavior. INTERVAL HISTORY: Patient has been doing fair. He had a quiet evening last night. He comes out in the day area. He will wander about. He attended groups yesterday and generally was appropriate. He slept 6 hours last night. Today, he has been up. He continues to attend most groups. He has some disorganized thoughts. He will have some interactions with staff where he can have appropriate conversation. At other times, it may be hard to follow his train of thought. He has been cooperative with care. He tolerates his psychotropic medications. MENTAL STATUS: Patient was restless. He answered questions with brief responses, some of the time, he responded directly to questions. At other times he made comments that seem tangential. At times he murmured things to himself and it was hard to understand what he was saying. He made a comment a few different times that he was analyzing his situation as we talked, which was part of what he was talking to himself about. His affect was somewhat intense. His mood reserved, though not clearly down or depressed. He did not appear to be significantly distressed. There was some question of internal stimuli. Cognition was clear. ASSESSMENT: I will continue the current diagnosis and treatment plan. I will increase Invega up to 12 mg a day. I reviewed medication issues with the patient. We talked about indication, dosing strategy, potential side effects and risks related to metabolics. I reviewed issues with the patient in regard to his involuntary hospitalization and having to sign a deferral. We will continue to focus on stabilization and discharge planning. MMODL / BRAYDENN: [id number] /
[2019-01-26] MEDS: PALIPERIDONE 6 MG TAB.ER.24 PO SCH (16:52)
[2019-01-26] MEDS: ZIPRASIDONE 20 MG VIAL IM PRN (20:40)
[2019-01-26] MEDS: LORazepam 2 MG/ML INJ IM PRN (21:56)
[2019-01-27] MEDS: SUCRALFATE 1 GM TAB PO SCH ×4 (09:18→20:52)
[2019-01-27] MEDS: METOPROLOL TARTRATE 25 MG TAB PO SCH ×2 (09:18→20:52)
[2019-01-27] MEDS: amLODIPine 10 MG TAB PO SCH (09:18)
[2019-01-27] MEDS: FENOFIBRATE 160 MG TAB PO SCH (09:18)
[2019-01-27] MEDS: TRIAMCINOLONE ACET 0.5% CREAM 15 GM TUBE TOPICAL SCH ×2 (09:19→20:51)
[2019-01-27] MEDS: NYSTATIN 100,000UNIT/GM CREAM 30 GM TUBE TOPICAL SCH ×2 (09:20→20:51)
[2019-01-27] MEDS: NICOTINE 14MG/24HR PATCH TRANSDERM SCH (09:21)
[2019-01-27] MEDS ORDERED: PALIPERIDONE IM 234 MG/1.5 ML SYG IM STA (13:31)
[2019-01-27] MEDS: PALIPERIDONE 6 MG TAB.ER.24 PO SCH (17:16)
[2019-01-27] MEDS: LORazepam 1 MG TAB PO PRN (20:54)
[2019-01-27] MEDS: ZIPRASIDONE 20 MG VIAL IM PRN (22:27)
[2019-01-27] MEDS ORDERED: ZIPRASIDONE 20 MG VIAL IM ONE (22:27)
[2019-01-27] MEDS ORDERED: WATER FOR INJECTION, STERILE 10 ML IV ONE (22:27)
[2019-01-28] MEDS: ZIPRASIDONE 20 MG VIAL IM PRN (05:36)
[2019-01-28] MEDS: FENOFIBRATE 160 MG TAB PO SCH (08:23)
[2019-01-28] MEDS: NICOTINE 14MG/24HR PATCH TRANSDERM SCH (08:23)
[2019-01-28] MEDS: SUCRALFATE 1 GM TAB PO SCH ×4 (08:23→21:58)
[2019-01-28] MEDS: METOPROLOL TARTRATE 25 MG TAB PO SCH ×2 (08:24→21:58)
[2019-01-28] MEDS: amLODIPine 10 MG TAB PO SCH (08:24)
[2019-01-28] MEDS ORDERED: NICOTINE 7MG/24HR PATCH TRANSDERM STA (08:33)
[2019-01-28] MEDS: NYSTATIN 100,000UNIT/GM CREAM 30 GM TUBE TOPICAL SCH (08:57)
[2019-01-28] MEDS: TRIAMCINOLONE ACET 0.5% CREAM 15 GM TUBE TOPICAL SCH (08:57)
--- NOTE | 2019-01-28 11:18 | PN ---
PROGRESS NOTE DATE OF SERVICE: 01/27/2019 CHIEF COMPLAINT: The patient was threatening to hit his mother. He had hallucinations and disorganized behavior. INTERVAL HISTORY: The patient has been doing fair. He had a relatively quiet evening last night. He comes out on the unit. He wanders. Sometimes he makes odd disconnected statements. He will respond appropriately to staff. He has been cooperative with care. He slept 6 hours last night today he has been up. He does attend some groups though not others. He was appropriate in the group he attended this morning. I had a meeting with the patient and his mother. Mother indicates that had been doing fine all through November, December and early January. He became very disoriented and disorganized just within a few days prior to admission. She said he was so disoriented that she had never seen him like that before. He may have had one other hospitalization where he got to that degree of dysfunction. She was not able to give any ideas as to what might have set things off for him other than questioning whether or not he takes medications appropriately. He has had problems in the past where he does not take his medications and she is aware that has caused him problems. She notes that currently he does not have much to occupy himself. He lives with her. He does not engage in much for productive activities. Sometimes he will follow through with treatment at mental health at other times he will not make appointments. She says that is likely one of the issues that causes problems for him. Noted that the patient has only made it through about 10 years of school and is couple years behind graduating. She would encourage him to get his diploma for which the patient said he agreed. She encouraged him towards thinking about getting a job or having other productive activities in the community. The patient was not opposed to this idea. He was willing to be put on long-acting injectable. He had not tolerated Haldol or Risperdal in the past. The mother was not clear as to the specifics on that but said both of those medicines were not very agreeable for him. The patient said he would be willing to initiate Invega Sustenna. The patient tolerates his oral Invega. MENTAL STATUS: Patient gave fair eye contact. He was somewhat restless. He answered questions with brief responses. His thoughts were generally clear. At times he would say some things to himself, though again it seemed like he was analyzing the things that were happening and reviewing those things to himself to the best extent I could understand his words. His affect was a little intense. His mood was even. He did not appear to be significantly distressed. ASSESSMENT: I will continue the current diagnosis and treatment plan. I discussed medication issues at length. We will start Invega Sustenna. He will get a dose of 234 mg IM today. I reviewed medication issues with the patient in regards to management of his medication. I will look at reducing his oral Invega. We will coordinate with [facility] for followup. MMRICKL / BRAYDENN: [id number] /
--- NOTE | 2019-01-28 16:09 | PN ---
PROGRESS NOTE DATE OF SERVICE: 01/28/2019. CHIEF COMPLAINT: The patient was threatening to hit his mother. He had hallucinations and disorganized behavior. INTERVAL HISTORY: The patient has been doing fairly well. He had a quiet evening last night. He comes out in the day area. He tends to have a quiet manner. He wanders. He will interact a little with others. He had some difficulty in the evening feeling restless and having trouble getting to sleep. At 8:50 pm he was given Ativan. He slept fair last night. He slept about 4-5 hours. He got up early in the morning and was intense in his manner. He became verbally aggressive with another patient. He acknowledged hearing voices. He was given Geodon 20 mg IM at 5:36 am. Today, he has been wondering about the unit. He seems to be fairly calm in how he presents. He will interact with staff and peers. He has attended both groups today and has done quite well in the groups. When I talked to him today he said that he feels very good with the start of Invega Sustenna. He does not feel he has had any trouble with his medications and has tolerated the start of his long-acting injectable. MENTAL STATUS: Patient sat without much restlessness. He had a quiet manner. He was neatly groomed, which was new for him. He answered questions with direct responses. He did not say a lot. He spoke in a soft quiet voice. His affect was a little constricted. His mood was reserved though not clearly down or depressed. He did not appear to be distressed. There was no outward evidence of thought disorder. Cognition was clear. ASSESSMENT: I will continue the current diagnosis and treatment plan. I will continue Invega. I will reduce his dose to 9 mg at 5:00 pm. I discussed treatment issues in regard to long-acting injectables. We discussed side effects and concerns relating to metabolics. I discussed discharge planning issues with the patient. I would anticipate discharging the patient on Saturday if things remain stable for him. We will continue to focus on stabilization and discharge planning. JULIAN / BAYRON: [id number] /
[2019-01-28] MEDS: PALIPERIDONE 3 MG TAB.ER.24 PO SCH (17:42)
[2019-01-29] MEDS: LORazepam 1 MG TAB PO PRN ×2 (01:10→21:54)
[2019-01-29] MEDS: FENOFIBRATE 160 MG TAB PO SCH (09:11)
[2019-01-29] MEDS: NICOTINE 7MG/24HR PATCH TRANSDERM SCH (09:11)
[2019-01-29] MEDS: SUCRALFATE 1 GM TAB PO SCH ×4 (09:11→21:52)
[2019-01-29] MEDS: amLODIPine 10 MG TAB PO SCH (09:11)
[2019-01-29] MEDS: METOPROLOL TARTRATE 25 MG TAB PO SCH ×2 (09:11→21:52)
[2019-01-29] MEDS: NYSTATIN 100,000UNIT/GM CREAM 30 GM TUBE TOPICAL SCH ×2 (09:12→17:05)
[2019-01-29] MEDS: TRIAMCINOLONE ACET 0.5% CREAM 15 GM TUBE TOPICAL SCH ×2 (09:12→17:05)
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
[2019-01-29] MEDS: FLUoxetine HCL 20 MG CAP PO SCH (12:25)
[2019-01-29] MEDS: PALIPERIDONE 3 MG TAB.ER.24 PO SCH (18:06)
[2019-01-30] MEDS: NYSTATIN 100,000UNIT/GM CREAM 30 GM TUBE TOPICAL SCH ×3 (06:52→20:45)
[2019-01-30] MEDS: TRIAMCINOLONE ACET 0.5% CREAM 15 GM TUBE TOPICAL SCH ×3 (06:53→20:45)
[2019-01-30] MEDS: FENOFIBRATE 160 MG TAB PO SCH (09:39)
[2019-01-30] MEDS: NICOTINE 7MG/24HR PATCH TRANSDERM SCH (09:40)
[2019-01-30] MEDS: FLUoxetine HCL 20 MG CAP PO SCH (09:41)
[2019-01-30] MEDS: METOPROLOL TARTRATE 25 MG TAB PO SCH ×2 (09:41→20:45)
[2019-01-30] MEDS: amLODIPine 10 MG TAB PO SCH (09:42)
[2019-01-30] MEDS: SUCRALFATE 1 GM TAB PO SCH ×4 (09:42→20:45)
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
[2019-01-30] MEDS: PALIPERIDONE 3 MG TAB.ER.24 PO SCH (17:41)
[2019-01-31] MEDS: LORazepam 1 MG TAB PO PRN ×2 (00:11→13:00)
[2019-01-31] MEDS: SUCRALFATE 1 GM TAB PO SCH ×4 (08:00→20:58)
[2019-01-31] MEDS: FLUoxetine HCL 20 MG CAP PO SCH (10:09)
[2019-01-31] MEDS: FENOFIBRATE 160 MG TAB PO SCH (10:09)
[2019-01-31] MEDS: METOPROLOL TARTRATE 25 MG TAB PO SCH ×2 (10:09→20:58)
[2019-01-31] MEDS: amLODIPine 10 MG TAB PO SCH (10:09)
[2019-01-31] MEDS: NICOTINE 7MG/24HR PATCH TRANSDERM SCH (10:09)
[2019-01-31] MEDS: NYSTATIN 100,000UNIT/GM CREAM 30 GM TUBE TOPICAL SCH ×2 (10:10→20:58)
[2019-01-31] MEDS: TRIAMCINOLONE ACET 0.5% CREAM 15 GM TUBE TOPICAL SCH ×2 (10:10→20:58)
[2019-01-31] MEDS: PALIPERIDONE 3 MG TAB.ER.24 PO SCH (17:05)
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
[2019-01-31] MEDS ORDERED: WATER FOR INJECTION, STERILE 10 ML IV ONE (22:17)
[2019-01-31] MEDS ORDERED: ZIPRASIDONE 20 MG VIAL IM ONE (22:17)
[2019-01-31] MEDS: ZIPRASIDONE 20 MG VIAL IM PRN (23:04)
[2019-02-01] MEDS: FLUoxetine HCL 20 MG CAP PO SCH (08:59)
[2019-02-01] MEDS: METOPROLOL TARTRATE 25 MG TAB PO SCH ×2 (08:59→20:57)
[2019-02-01] MEDS: FENOFIBRATE 160 MG TAB PO SCH (08:59)
[2019-02-01] MEDS: SUCRALFATE 1 GM TAB PO SCH ×4 (08:59→20:57)
[2019-02-01] MEDS: LORazepam 1 MG TAB PO PRN ×2 (08:59→20:57)
[2019-02-01] MEDS: amLODIPine 10 MG TAB PO SCH (08:59)
[2019-02-01] MEDS: TRIAMCINOLONE ACET 0.5% CREAM 15 GM TUBE TOPICAL SCH ×2 (09:00→21:03)
[2019-02-01] MEDS: ACETAMINOPHEN TAB 325 MG TAB PO PRN (09:00)
[2019-02-01] MEDS: NICOTINE 7MG/24HR PATCH TRANSDERM SCH (09:00)
[2019-02-01] MEDS: NYSTATIN 100,000UNIT/GM CREAM 30 GM TUBE TOPICAL SCH ×2 (09:00→21:03)
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
[2019-02-01] MEDS: HALOPERIDOL 5 MG TAB PO SCH ×2 (12:52→20:57)
[2019-02-01] MEDS ORDERED: PALIPERIDONE 3 MG TAB.ER.24 PO SCH (17:00)
[2019-02-02] MEDS: FLUoxetine HCL 20 MG CAP PO SCH (08:12)
[2019-02-02] MEDS: HALOPERIDOL 5 MG TAB PO SCH ×2 (08:12→21:20)
[2019-02-02] MEDS: NICOTINE 7MG/24HR PATCH TRANSDERM SCH (08:12)
[2019-02-02] MEDS: METOPROLOL TARTRATE 25 MG TAB PO SCH ×2 (08:12→21:20)
[2019-02-02] MEDS: FENOFIBRATE 160 MG TAB PO SCH (08:13)
[2019-02-02] MEDS: SUCRALFATE 1 GM TAB PO SCH ×4 (08:13→21:20)
[2019-02-02] MEDS: amLODIPine 10 MG TAB PO SCH (08:13)
[2019-02-02] MEDS: TRIAMCINOLONE ACET 0.5% CREAM 15 GM TUBE TOPICAL SCH ×2 (08:15→21:20)
[2019-02-02] MEDS: NYSTATIN 100,000UNIT/GM CREAM 30 GM TUBE TOPICAL SCH (08:15)
[2019-02-02 08:16] VITALS: RESP 18
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
[2019-02-02] MEDS: LORazepam 1 MG TAB PO PRN (15:42)
[2019-02-03] MEDS: LORazepam 1 MG TAB PO PRN (03:52)
[2019-02-03 06:46] VITALS: TEMP 98.6
[2019-02-03] MEDS ORDERED: PALIPERIDONE IM 156 MG/ML SYG IM ONE (09:00)
[2019-02-03] MEDS: SUCRALFATE 1 GM TAB PO SCH ×4 (09:55→20:08)
[2019-02-03] MEDS: amLODIPine 10 MG TAB PO SCH (09:56)
[2019-02-03] MEDS: HALOPERIDOL 5 MG TAB PO SCH ×2 (09:56→20:08)
[2019-02-03] MEDS: FLUoxetine HCL 20 MG CAP PO SCH (09:56)
[2019-02-03] MEDS: NICOTINE 7MG/24HR PATCH TRANSDERM SCH (09:56)
[2019-02-03] MEDS: METOPROLOL TARTRATE 25 MG TAB PO SCH ×2 (09:56→20:08)
[2019-02-03] MEDS: TRIAMCINOLONE ACET 0.5% CREAM 15 GM TUBE TOPICAL SCH ×2 (09:57→23:44)
[2019-02-03] MEDS: FENOFIBRATE 160 MG TAB PO SCH (09:57)
--- NOTE | 2019-02-03 11:03 | P.PN ---
Progress Note - Text Progress Note Date: 02/03/19 Interval history: The patient is found in the hallway follows me to an interview room. Progress notes reviewed. He received his second Invega Sustenna this morning which was the 156 mg dose. He was placed on Haldol 10 mg twice daily due to refractory symptoms of psychosis. On the of this month he was placed on Prozac for depressive symptoms. It was noted that yesterday he had become upset threw a cup of water and punch the wall. He has little insight into that but does recognize that he was upset at the time because he felt his rights were not being respected by staff. He states that when someone enters his room he wanted documented that he has given them permission. He reports no suicidal thoughts currently states he had them just once since he's been here. He indicates appetite stable. He feels he is ready for discharge. Notes were reviewed it appears his mother feels the patient is not at baseline function. Mental status exam: The patient is alert he has his hair pulled back he is dressed in his own clothing. He was pleasant and cooperative during the intervi ew. There were times where he became distracted and would change the subject. He did terminate the interview calmly but prematurely. He describes some paranoid thinking still. Thought process demonstrates some continued disorganization. He is reporting no current suicidal or homicidal thoughts. Insight and judgment remain impaired. He demonstrates no involuntary repetitive movements. Affect was constricted throughout the session. Impression/plan: Continued symptoms of psychosis with impulsive aggressiveness, the patient will be continued as current psychotropic medications however I will discontinue the Prozac. I appreciate the fact that he may have some depressive symptoms but the Prozac may imbalance his affect and insight some impulsive or agitated behavior. We discussed using a mood stabilizer instead and chose Lamictal which may target depressive symptoms and provide some stabilizing influence on his affect. He had reported being on Depakote in the past with adverse side effects. Vital signs reviewed. Despite his report of poor sleep staff reports he slept 6 hours last evening. He is eating. He requires continued psychiatric hospitalization due to his acute psychosis and instability of affect/impulsive behavior.
[2019-02-03] MEDS: lamoTRIgine 25 MG TAB PO SCH ×2 (13:14→20:15)
[2019-02-03] MEDS: ACETAMINOPHEN TAB 325 MG TAB PO PRN (20:08)
[2019-02-04] MEDS: amLODIPine 10 MG TAB PO SCH (08:22)
[2019-02-04] MEDS: NICOTINE 7MG/24HR PATCH TRANSDERM SCH ×2 (08:22→08:28)
[2019-02-04] MEDS: SUCRALFATE 1 GM TAB PO SCH ×4 (08:22→22:09)
[2019-02-04] MEDS: METOPROLOL TARTRATE 25 MG TAB PO SCH ×2 (08:22→22:10)
[2019-02-04] MEDS: lamoTRIgine 25 MG TAB PO SCH ×2 (08:22→22:10)
[2019-02-04] MEDS: HALOPERIDOL 5 MG TAB PO SCH ×2 (08:22→22:10)
[2019-02-04] MEDS: FENOFIBRATE 160 MG TAB PO SCH (08:22)
[2019-02-04] MEDS: TRIAMCINOLONE ACET 0.5% CREAM 15 GM TUBE TOPICAL SCH ×2 (08:28→22:10)
[2019-02-04] MEDS: ALBUTEROL INHALER 60 PUFF/8 GM INHALER INHALATION PRN ×2 (09:13→22:49)
[2019-02-04 09:38] VITALS: BP 132/81; PULSE 88
--- NOTE | 2019-02-04 11:13 | P.PN ---
Progress Note - Text Progress Note Date: 02/04/19 Interval history: The patient is found in the hallway he follows me to an interview room. He states that he would like to go home. He states that he received a shot last evening but there is no record of that. He did receive Ativan early yesterday. He states he is not attending groups. He describes having some difficulty sleeping at night staff recorded he slept 4 hours. We reviewed some options for sleep aids he states he is not comfortable taking anything else. He has been compliant with the prescribed medications including the Lamictal we just started. Mental status exam: The patient is alert he is dressed in his own clothing eye contact is intermittent. Speech is fluent spontaneous at times. He provides brief answers to questions. He demonstrates some affect lability and becomes tearful twice during the session stating he wants to go home. He reports feeling unsafe even in the hospital but will not describe that in any further detail. He demonstrates impaired insight. He reports having no suicidal or homicidal ideation intent or plan. He demonstrates no involuntary repetitive movements. He demonstrates no verbal or physical aggressiveness. Impression/plan: Ongoing symptoms of psychosis and affect lability. Continue current psychotropic medications we will titrate the Lamictal during the course of his stay. He requires continued psychiatric hospitalization. We will continue to assess his safety risk and encourage group participation. Vital signs reviewed.
[2019-02-04] MEDS: LORazepam 1 MG TAB PO PRN (12:26)
[2019-02-04] MEDS: ZIPRASIDONE 20 MG VIAL IM PRN (20:16)
[2019-02-04] MEDS: LORazepam 2 MG/ML INJ IM PRN (20:16)
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
== END 2019-02-04 23:33 | DRG 885 ==
LOC: EC 01:06 → 3MHU 05:22
PROVIDERS: ADMIT Psychiatry & Neurology Psychiatry; ATTEND Psychiatry & Neurology Psychiatry
DX: F20.9 Schizophrenia, unspecified (principal); E72.51 Non-ketotic hyperglycinemia; I10 Essential (primary) hypertension; F41.9 Anxiety disorder, unspecified; Z91.83 Wandering in diseases classified elsewhere; F17.210 Nicotine dependence, cigarettes, uncomplicated; F32.9 Major depressive disorder, single episode, unspecified; R45.1 Restlessness and agitation; Z79.899 Other long term (current) drug therapy; T43.96XA Underdosing of unspecified psychotropic drug, initial encounter; Z91.128 Patient's intentional underdosing of medication regimen for other reason
CPT/HCPCS: 80053; 80061; 80306; 81003; 82075; 83036; 84443; 85025

== ENCOUNTER → 2019-07-13 | Outpatient (CLI) | payer MEDICARE, OTHER ==
--- NOTE | 2019-07-13 12:53 | US ---
EXAMINATION TYPE: US scrotum with doppler. Grayscale and color Doppler Duplex imaging performed of t pasha scrotum. DATE OF EXAM: 07/13/2019 COMPARISON: NONE CLINICAL HISTORY: N50.9 left testicular mass. Palpable mass left testicle x 3 years per patient EXAM MEASUREMENTS: TESTICLES: Right Testicle: 3.4 x 1.6 x 2.7 cm Left Testicle: 2.9 x 1.5 x 2.6 cm EPIDIDYMIS HEAD: Right Epididymis: 0.7 cm Left Epididymis: 1.1 cm Doppler performed to assess for testicular vascularity; good bilateral color flow and waveforms are s een. There is no evidence of testicular torsion. Presence of hydroceles: No Presence of varicoceles: No Superior to the left testicle, at the area of the patient's palpable, there is a hypoechoic vascular area visualized measuring 1.3 x 1.0 x 1.3 cm. This appears directly adjacent to the epididymal head. IMPRESSION: Solid, vascular mass measuring 1.3 cm directly adjacent to the left epididymal head corre sponds to the palpable abnormality. This is nonspecific and palpable to the patient for 3 years. Con siderations are for adenomatoid tumor, fibrous pseudotumor of the scrotum, complex spermatocele, or o ther. Urologic consultation is recommended.
== END | disposition home or self-care (01) ==
LOC: RADUSWWP 12:05
PROVIDERS: ATTEND Family Medicine
DX: R93.89 Abnormal findings on diagnostic imaging of other specified body structures (principal); N50.9 Disorder of male genital organs, unspecified
CPT/HCPCS: 76870; 93975